=== PATIENT | male | born 1960 | race Caucasian/White ===

== ENCOUNTER 2021-06-26 20:24 | Emergency (ER) | payer MEDICARE, OTHER ==
[~2021-06-26] VITALS: Ht 185.4 cm; Wt 83.7 kg
[2021-06-26 21:00] LABS: HEMOGLOBIN 12.7 gm/dl (14.0-17.5); RED BLOOD COUNT 3.96 M/UL (4.20-5.50); WHITE BLOOD COUNT 20.8 K/UL (4.5-11.0)
[2021-06-26 21:23] LABS: BUN/CREATININE RATIO 25 (0-10)
== END 2021-06-27 01:00 | disposition short-term general hospital (02) ==
LOC: ER1 20:24 → EDBD 20:24 → ER1 06-27 01:00
PROVIDERS: Physician Assistant
DX: E11.628 Type 2 diabetes mellitus with other skin complications (principal); L08.89 Other specified local infections of the skin and subcutaneous tissue; L84 Corns and callosities; E11.51 Type 2 diabetes mellitus with diabetic peripheral angiopathy without gangrene; K21.9 Gastro-esophageal reflux disease without esophagitis; Z20.822 Contact with and (suspected) exposure to COVID-19
CPT/HCPCS: 73630; 80053; 83605; 85025; 85610; 85652; 85730; 86140; 87040; 93926; 96365; 96366; 96368; 96375; 99285; J1644; J2543; J3370; J7030; U0002